=== PATIENT | male | born 1940 | race Caucasian/White ===

== ENCOUNTER → 2017-06-30 | Outpatient (CLI) | payer MEDICARE, BC ==
[2017-07-02 10:24] LABS: PROSTATE SPECIFIC ANTIGEN 5.5 ng/mL (0.0-4.0); PSA % FREE 5.6 % (.); PSA FREE 0.31 ng/mL
== END ==
LOC: OD 15:12
PROVIDERS: ATTEND Urology
DX: N40.1 Benign prostatic hyperplasia with lower urinary tract symptoms (principal); N41.1 Chronic prostatitis; K58.9 Irritable bowel syndrome, unspecified
CPT/HCPCS: 36415; 84154

== ENCOUNTER → 2017-08-19 | Outpatient (CLI) | payer MEDICARE, BC | LOC: OD 12:08 | PROVIDERS: ATTEND Urology | DX: N40.1 Benign prostatic hyperplasia with lower urinary tract symptoms (principal); N41.1 Chronic prostatitis; R97.20 Elevated prostate specific antigen [PSA] | CPT/HCPCS: 36415; 84066 ==